=== PATIENT | male | born 1980 | race African-American/Black ===

== ENCOUNTER 2019-12-11 13:02 | Emergency (ER) | payer MEDICAID, OTHER ==
[~2019-12-11] VITALS: Ht 180.3 cm; Wt 99.8 kg
[~2019-12-11 13:02] MED LIST: BUPR100T4 PO; MIRT15TA PO; ZIPR80CA2 PO
[2019-12-11] MEDS ORDERED: INSULIN REGULAR, HUMAN 300 UNIT/3 ML VIAL IV ONE (13:30)
[2019-12-11] MEDS ORDERED: IV NORMAL SALINE 1000 ML BAG IV ONE ×2 (13:30→14:45)
[2019-12-11] MEDS ORDERED: DIVA500T2 PO (13:30)
[2019-12-11] MEDS ORDERED: ATOR10TA PO (13:30)
[2019-12-11] MEDS ORDERED: ALBU8.5H8 INH (13:30)
[2019-12-11] MEDS ORDERED: QUET50TA PO ×2 (13:30)
[2019-12-11] MEDS ORDERED: LISI10TA5 PO (13:30)
[2019-12-11] MEDS ORDERED: INSU100I26 SQ (13:30)
[2019-12-11] MEDS ORDERED: QUET400T PO (13:30)
[2019-12-11] MEDS ORDERED: METF500S7 PO (13:30)
[2019-12-11] MEDS ORDERED: INSULIN REGULAR, HUMAN 300 UNIT/3 ML VIAL ONE (13:54)
[2019-12-11 13:58] LABS: BASOPHILS % (AUTO) 0.6 % (0.0-2.0); EOSINOPHILS # (AUTO) 0.2 K/uL (0.0-0.7); EOSINOPHILS % (AUTO) 4.3 % (0.0-7.0); HEMATOCRIT 39.8 % (36.7-47.1); HEMOGLOBIN 13.4 g/dL (12.5-16.3); LYMPHOCYTES # (AUTO) 1.8 K/uL (20.0-40.0); LYMPHOCYTES % (AUTO) 35.5 % (20.5-51.5); MEAN CORPUSCULAR HEMOGLOBIN 28.9 uug (23.8-33.4); MEAN CORPUSCULAR HGB CONC 34 g/dL (32.5-36.3); MEAN CORPUSCULAR VOLUME 85.8 fL (73.0-96.2); MONOCYTES # (AUTO) 0.4 K/uL (2.0-10.0); NEUTROPHILS # (AUTO) 2.6 K/uL (1.8-8.9); NEUTROPHILS % (AUTO) 51.6 % (38.5-71.5); PLATELET COUNT (AUTO) 239 K/uL (152-348); RED BLOOD CELL COUNT(AUTO) 4.64 MIL/uL (4.06-5.63); WHITE BLOOD COUNT (AUTO) 5.1 K/uL (3.6-10.2)
--- NOTE | 2019-12-11 14:07 | NUR ---
PT IS IN ROOM #2B. DR MORRIS EVALUATED THE PT.
[2019-12-11 14:16] LABS: ALANINE AMINOTRANSFERASE 41 U/L (16-63); ALKALINE PHOSPHATASE 151 U/L (50-136); ASPARTATE AMINOTRANSFERASE 10 U/L (15-37); BILIRUBIN,DIRECT < 0.1 mg/dL (0.0-0.2); BILIRUBIN,TOTAL 0.1 mg/dL (0.2-1.0); CARBON DIOXIDE 26 mmol/L (21-32); CHLORIDE 96 mmol/L (98-107); CREATININE 1.2 mg/dL (0.6-1.3); POTASSIUM 4.4 mmol/L (3.5-5.1); TOTAL PROTEIN, SERUM 7.7 g/dL (6.4-8.2); UREA NITROGEN, BLOOD 9 mg/dL (7-18)
[2019-12-11 14:20] LABS: GLUCOSE 427 mg/dL (74-106)
[2019-12-11 14:44] LABS: *BILIRUBIN,URIN NEGATIVE (NEGATIVE); *BLOOD, URINE NEGATIVE (NEGATIVE); *CLARITY,URINE CLEAR (CLEAR); *COLOR,URINE YELLOW (YELLOW); *KETONES,URINE NEGATIVE (NEGATIVE); *UROBILINOGEN,URINE 0.2 E.U./dl (NORMAL); LEUKOCYTE ESTERASE ,URINE NEGATIVE (NEGATIVE); NITRITE, URINE NEGATIVE (NEGATIVE)
[2019-12-11 14:47] LABS: UGLUCOSE 3+ (NEGATIVE)
[2019-12-11 16:12] LABS: *AMPHETAMINE, URINE NEGATIVE (NEGATIVE); *CANNABINOID, URINE NEGATIVE (NEGATIVE); *COCCAINE, URINE NEGATIVE (NEGATIVE); *OPIATE, URINE NEGATIVE (NEGATIVE); *PHENCYCLIDINE SCREEN,URINE NEGATIVE (NEGATIVE)
[2019-12-11 16:28] LABS: BACTERIA,URINE NONE SEEN /HPF (NONE SEEN); RBC,URINE 0-3 /HPF (0-3); SQUAMOUS EPITHELIAL CELL,UR FEW /HPF (NONE SEEN); WBC,URINE 0-3 /HPF (0-3)
--- NOTE | 2019-12-11 17:58 | NUR ---
PT IS GOING TO GO BACK TO [facility]. [facility] WAS CALLED ACCORDING TO DR MORRIS ORDER TO ARRANGE PT's TRANSPORTATION BACK TO [facility]. TALKED TO JEAN. [facility] IS GOING TO BE SEND TO TRANSFER THE PT. ESPERANZA IS 1 HOUR. PT IS RESTING IN BED COMFORTABLY. NO S/S OF ACUTE DISTRESS AT THIS TIME.
--- NOTE | 2019-12-11 18:27 | NUR ---
PT WAS TRANSFERED TO [facility] VIA [facility]. D/C INSTRUCTIONS GIVEN TO THE PT BY DR MORRIS. REPORT WAS GIVEN TO AMBULANCE EMT.
[2019-12-11 18:30] VITALS: BP 136/77
== END 2019-12-11 18:30 | disposition home or self-care (01) ==
LOC: ER 13:05
DX: E11.65 Type 2 diabetes mellitus with hyperglycemia (principal); U07.1 COVID-19; R00.0 Tachycardia, unspecified; F17.210 Nicotine dependence, cigarettes, uncomplicated; F25.0 Schizoaffective disorder, bipolar type; J45.909 Unspecified asthma, uncomplicated; Z79.899 Other long term (current) drug therapy; Z88.8 Allergy status to other drugs, medicaments and biological substances; Z79.4 Long term (current) use of insulin
CPT/HCPCS: 36415; 71045; 80048; 80076; 80307; 81001; 82009; 82962 ×3; 83605 ×2; 84484; 85025; 87040 ×2; 87086; 93005; 96361; 96374; 99285; J1815; 70030-TC; A4663; J7030

== ENCOUNTER 2021-03-12 20:40 | Emergency (ER) | payer OTHER ==
[~2021-03-12] VITALS: Ht 180.3 cm; Wt 95.7 kg
[~2021-03-12 20:40] MED LIST changes: +ALBU8.5H8 INH; +ATOR10TA PO; +DIVA500T2 PO; +INSU100I26 SQ; +LISI10TA29 PO; +METF500S7 PO; +MIRT-121 PO; -MIRT15TA PO; +QUET400T PO; +QUET50TA PO
[2021-03-12] MEDS ORDERED: ASPIRIN 81 MG TAB.CHEW PO ONE (21:00)
--- NOTE | 2021-03-12 21:00 | NUR ---
[facility]
[2021-03-12] MEDS ORDERED: ASPIRIN 81 MG TAB.CHEW ONE (21:13)
--- NOTE | 2021-03-12 21:24 | NUR ---
PT RESTING IN BED, NO SIGNS OF DISTRESS.
[2021-03-12 21:28] LABS: HEMATOCRIT 36.9 % (36.7-47.1); MEAN CORPUSCULAR HEMOGLOBIN 29.3 uug (23.8-33.4); PLATELET COUNT (AUTO) 298 K/uL (152-348)
--- NOTE | 2021-03-12 21:30 | NUR ---
PT REFUSED IV LINE AT THIS TIME.
[2021-03-12 21:39] LABS: CARBON DIOXIDE 25 mmol/L (21-32); CHLORIDE 99 mmol/L (98-107); CREATININE 0.8 mg/dL (0.6-1.3); GLUCOSE 286 mg/dL (74-106); POTASSIUM 3.8 mmol/L (3.5-5.1); UREA NITROGEN, BLOOD 12 mg/dL (7-18)
[2021-03-12 21:52] LABS: ALANINE AMINOTRANSFERASE 24 U/L (16-63); ALKALINE PHOSPHATASE 97 U/L (50-136); ASPARTATE AMINOTRANSFERASE 11 U/L (15-37); BILIRUBIN,DIRECT 0.1 mg/dL (0.0-0.2); BILIRUBIN,TOTAL 0.2 mg/dL (0.2-1.0); TOTAL PROTEIN, SERUM 7.5 g/dL (6.4-8.2)
--- NOTE | 2021-03-12 22:30 | NUR ---
PATIENT REMAINS RESTING IN BED. AO X 4. NORMAL SINUS RHYTHM ON THE MONITOR - 90'S. NO SIGNS OF DISTRESS. PENDING TROPONIN SERIES.
--- NOTE | 2021-03-12 23:30 | NUR ---
PHLEB AT BEDSIDE FOR 2ND TROPONIN DRAW.
--- NOTE | 2021-03-13 00:37 | NUR ---
PATIENT HAS BEEN CLEARED FOR DC BY [facility]. Written and verbal after care instructions given. Patient verbalizes understanding of instructions. Stressed follow up or return to ER for worsening s/s. TAP card provided as requested. Attempted to arrange taxi, but patient changed his mind. Ambulated out of ed in steady gait and stable condition.
[2021-03-13 00:39] VITALS: BP 116/87
== END 2021-03-13 00:30 | disposition home or self-care (01) ==
LOC: ER 20:42
DX: R07.9 Chest pain, unspecified (principal); J45.909 Unspecified asthma, uncomplicated; E11.9 Type 2 diabetes mellitus without complications; G43.909 Migraine, unspecified, not intractable, without status migrainosus; F17.210 Nicotine dependence, cigarettes, uncomplicated; Z71.6 Tobacco abuse counseling; Z88.8 Allergy status to other drugs, medicaments and biological substances; Z79.4 Long term (current) use of insulin; Z79.899 Other long term (current) drug therapy
CPT/HCPCS: 36415; 70030-TC; 71045; 85025; 93005; A4663